=== PATIENT | female | born 1955 | race Caucasian/White ===

== ENCOUNTER 2017-01-20 21:13 | Inpatient (IN) | payer OTHER ==
[~2017-01-20] VITALS: Ht 172.7 cm; Wt 94.0 kg
[~2017-01-20 21:13] MED LIST: BACTDS PO; CLOT30CR24 TOP; DOCU-144 PO; FER325 PO; RIFA300C53 PO; TRAM50TA2 PO
[2017-01-21] VITALS (18 sets, daily range): BP systolic 116–150; BP diastolic 69–112; PULSE 65–89; RESP 10–20; TEMP 98.5; Ht 172.7 cm; Wt 94.0 kg
[2017-01-21 01:25] LABS: URINE BLOOD (Dip) POC Negative (NEGATIVE)
--- NOTE | 2017-01-21 01:55 | RADRPT ---
PROCEDURE: XR Chest. CLINICAL INDICATION: Chest pain. TECHNIQUE: AP Portable chest. COMPARISON: No pertinent prior examinations were submitted for comparison. FINDINGS: There is mild to moderate cardiomegaly. The lungs are clear. The osseous structures are unremarkab le. IMPRESSION: No acute findings. RPTAT: HIKT .Alhaji Tatum MD, MD Date Time Electronically viewed and signed by .Alhaji Tatum MD, MD on 01/21/2017 01:55 .T/
[2017-01-21 02:12] LABS: ADD SCAN DIFF NO
[2017-01-21 02:28] LABS: CHLORIDE 104 mmol/L (97-110)
[2017-01-21 02:29] LABS: POTASSIUM 4.5 mmol/L (3.5-5.1); SODIUM 138 mmol/L (135-144)
[2017-01-21 02:31] LABS: CREATININE 0.98 mg/dl (0.44-1.00); INR 0.98; PARTIAL THROMBOPLASTIN TIME 23.4 Sec (25.0-35.0)
[2017-01-21 02:32] LABS: ANION GAP 15 (8-16); BLOOD UREA NITROGEN 23 mg/dl (7-20); CALCIUM 9.1 mg/dl (8.4-10.2); CARBON DIOXIDE 24 mmol/L (21-31); GLUCOSE 107 mg/dl (70-220)
[2017-01-21 02:51] LABS: TROPONIN-I < 0.012 ng/ml (0.00-0.12)
[2017-01-21 02:57] LABS: ABNORMAL IP MESSAGE 1; HEMATOCRIT 19.3 % (37.0-47.0); MEAN CORPUSCULAR HEMOGLOBIN 14.7 pg (29.0-33.0); MEAN CORPUSCULAR HGB CONC 24.9 g/dl (32.0-37.0); MEAN PLATELET VOLUME 8.9 fl (7.4-10.4); PLATELET COUNT 594 10^3/UL (140-415); RED BLOOD COUNT 3.27 10^6/ul (4.20-5.40); RED CELL DISTRIBUTION WIDTH 20.5 % (11.5-14.5); WHITE BLOOD COUNT 11.5 10^3/ul (4.8-10.8)
[2017-01-21 03:02] LABS: HEMOGLOBIN 4.8 g/dl (12.0-16.0)
[2017-01-21 03:40] LABS: HEMATOCRIT 19.2 % (37.0-47.0)
--- NOTE | 2017-01-21 04:00 | ERA ---
ER Documentation Chief Complaint Date/Time DATE: 01/21/17 TIME: 03:59 Chief Complaint Anxiety HPI This is a 61 year female comes in for anxiety. She does say she has a history of anemia and some feeling very weak. Denies any fevers chills nausea vomiting suicidal homicidal ideation. Denies any other current complaints. ROS All systems reviewed and are negative except as per history of present illness. Medications Home Meds Active Scripts Tramadol HCl (Tramadol HCl) 50 Mg Tablet, 50 MG PO Q6H Y for SEVERE PAIN LEVEL 7 -10, #20 TAB Prov:HECTOR SUTTON CLAIMS VICE PRESIDENT 05/01/16 Docusate Sodium* (Colace*) 100 Mg Capsule, 100 MG PO BID, #60 CAP Prov:HECTOR SUTTON CLAIMS VICE PRESIDENT 05/01/16 Ferrous Sulfate* (Ferrous Sulfate*) 325 Mg Tabec, 325 MG PO BID, #60 TAB Prov:HECTOR SUTTON NP 05/01/16 Clotrimazole* (Clotrimazole* AF) 1% - 30 Gm Cream.gm., 1 APPLIC TOP BID for 7 Days, TUB Prov:HECTOR SUTTON NP 04/07/15 Rifampin* (Rifampin*) 300 Mg Cap, 300 MG PO BID, #6 CAP Prov:HECTOR SUTTON CLAIMS VICE PRESIDENT 04/07/15 Sulfamethoxazole-Trimethoprim* (Bactrim* DS) 800-160 Mg Tab, 1 TAB PO BID for 10 Days, TAB Prov:HECTOR SUTTON NP 04/07/15 Allergies Allergies: Coded Allergies: No Known Allergy (Unverified , 04/07/15) PMhx/Soc History of Surgery: Yes (arm surgery) Anesthesia Reaction: No Hx Neurological Disorder: No Hx Respiratory Disorders: No Hx Cardiac Disorders: No Hx Psychiatric Problems: Yes (Anxiety) Hx Miscellaneous Medical Probl: No Hx Alcohol Use: Yes (Former) Hx Tobacco Use: Yes Smoking Status: Never smoker Physical Exam Vitals Vital Signs Date Time Temp Pulse Resp B/P Pulse Ox O2 Delivery O2 Flow Rate FiO2 01/21/17 03:30 99.4 84 18 125/80 100 Room Air 01/20/17 21:17 100.0 95 20 122/60 100 Physical Exam Const: [] Head: Atraumatic Eyes: Normal Conjunctiva ENT: Normal External Ears, Nose and Mouth. Neck: Full range of motion..~ No meningismus. Resp: Clear to auscultation bilaterally Cardio: Regular rate and rhythm, no murmurs Abd: Soft, non tender, non distended. Normal bowel sounds Skin: No petechiae or rashes Back: No midline or flank tenderness Ext: No cyanosis, or edema Neur: Awake and alert Psych: Normal Mood and Affect Result Diagram: 01/21/17 02001/21/17 0203 Results 24 hrs Laboratory Tests Test 01/21/17 01:28 01/21/17 02:03 Bedside Urine pH (LAB) 5.5 Bedside Urine Protein (LAB) 1+ Bedside Urine Glucose (UA) Negative Bedside Urine Ketones (LAB) Negative Bedside Urine Blood Negative Bedside Urine Nitrite (LAB) Negative Bedside Urine Leukocyte Esterase (L Trace White Blood Count 11.510^3/ul Red Blood Count 3.2710^6/ul Hemoglobin 4.8g/dl Hematocrit 19.3% Mean Corpuscular Volume 59.0fl Mean Corpuscular Hemoglobin 14.7pg Mean Corpuscular Hemoglobin Concent 24.9g/dl Red Cell Distribution Width 20.5% Platelet Count 99132^3/UL Mean Platelet Volume 8.9fl Neutrophils % 74.1% Lymphocytes % 15.2% Monocytes % 9.8% Eosinophils % 0.3% Basophils % 0.1% Nucleated Red Blood Cells % 0.3/100WBC Neutrophils # 8.610^3/ul Lymphocytes # 1.810^3/ul Monocytes # 1.110^3/ul Eosinophils # 0.010^3/ul Basophils # 0.010^3/ul Nucleated Red Blood Cells # 0.010^3/ul Prothrombin Time 13.0Sec Prothrombin Time Ratio 1.0 INR International Normalized Ratio 0.98 Activated Partial Thromboplast Time 23.4Sec Sodium Level 138mmol/L Potassium Level 4.5mmol/L Chloride Level 104mmol/L Carbon Dioxide Level 24mmol/L Anion Gap 15 Blood Urea Nitrogen 23mg/dl Creatinine 0.98mg/dl Glucose Level 107mg/dl Calcium Level 9.1mg/dl Troponin I < 0.012ng/ml [facility] Patient found to have a hemoglobin of 4.8. She will be admitted to hospitalist. Typed and crossed for 2 units. EKG: Rate/Rhythm: [Normal Sinus Rhythm] QRS, ST, T-waves: [No changes consistent w/ acute ischemia] Impression: [No evidence of ischemia or arrhythmia] Chest X-ray 1V Interpreted by me: Soft Tissue: No acute abnormalities Bones: No acute abnormalities Mediastinum/Cardiac Silhouette/Lungs: [No acute abnormalities] Departure Diagnosis: Primary Impression: Anemia Qualified Code: D64.9 - Anemia, unspecified type Condition: Serious NICKI KRISHNA January 21, 2017 04:00
[2017-01-21 04:06] LABS: HEMOGLOBIN 4.7 g/dl (12.0-16.0)
[2017-01-21 05:42] LABS: PLATELET ESTIMATE PLT APPEAR INCREASED
[2017-01-21 05:43] LABS: TOTAL CELLS COUNTED % 100
[2017-01-21 05:50] LABS: ANISOCYTOSIS 2+
[2017-01-21 05:51] LABS: HYPOCHROMASIA 2+; MICROCYTOSIS 1+; POLYCHROMASIA 1+
[2017-01-21] MEDS ORDERED: DIPHENHYDRAMINE 50 MG INJ IV ONE (06:00)
[2017-01-21] MEDS ORDERED: NACL 0.9% 3 ML SYG IV SCH (07:30)
[2017-01-21] MEDS ORDERED: Pantoprazole 80 mg in NS 100 ml LD IV ONE (07:30)
[2017-01-21] MEDS ORDERED: morphine 2 MG INJ IV PRN (07:30)
[2017-01-21] MEDS ORDERED: PANTOPRAZOLE 40 MG INJ IV ONE (07:30)
[2017-01-21] MEDS ORDERED: ONDANSETRON 4 MG INJ IV PRN (07:30)
--- NOTE | 2017-01-21 08:07 | HP ---
DATE OF ADMISSION: 01/20/2017 TIME SEEN: 6 a.m. CHIEF COMPLAINT: Anxiety and generalized weakness. HISTORY OF PRESENT ILLNESS: The patient is a 61-year-old female with a history of anxiety and anemi a who presented to the emergency department with the above-stated chief complaint. She reported ramila ng under a lot of stress, especially lately, and also reported a chronic history of fatigue and weak ness which had been progressively getting worse. Denied any chest pain, shortness of breath, nausea , vomiting, bright red blood per rectum. When she presented to the ER, blood pressure was 122/60, heart rate 95, respiratory rate 20, tempera ture 100, oxygen saturation 100% on room air. Laboratory value was notable for a hemoglobin of 4.8 with MCV of 59 and a platelet count 594. WBC 11.5, BUN 23. Otherwise, the rest of BMP within swapnil l limits. Chest x-ray was done which shows no acute findings with mild to moderate cardiomegaly. Two units of PRBCs have been ordered for her. Note that the patient did come here to the ER in April of last y ear with fatigue and weakness, and at that time, hemoglobin was 10.6. REVIEW OF SYSTEMS: A 12-point review was performed, negative except as mentioned in the HPI. PAST MEDICAL HISTORY: As per HPI. PAST SURGICAL HISTORY: She had some type of surgery on her arm. SOCIAL HISTORY: Positive for tobacco. She is an ex-illicit drug user as well as used to drink alco hol in the past. ALLERGIES: NO KNOWN DRUG ALLERGIES. HOME MEDICATIONS: 1. Ferrous sulfate. 2. Colace. PHYSICAL EXAMINATION: VITAL SIGNS: Stable. GENERAL: No acute distress, answering questions appropriately. HEENT: No obvious head deformity. Pupils react to light. Extraocular movements intact. CARDIOVASCULAR: Regular rate and rhythm. No extra sounds. LUNGS: Clear. ABDOMEN: Soft, nontender, nondistended. Positive bowel sounds. EXTREMITIES: No edema. NEUROLOGIC: No focal deficits. LABORATORY DATA: Pertinent positives as mentioned in the HPI. IMAGING: Chest x-ray results as mentioned in the HPI. IMPRESSION: 1. Severe microcytic anemia, most likely from gastrointestinal bleeding. 2. Most likely gastrointestinal bleed with positive stool guaiac. 3. Generalized weakness secondary to anemia. 4. Anxiety. PLAN: The patient's severe anemia is likely secondary to gastrointestinal bleed given positive stoo l guaiac test in the ER. Plan is for a blood transfusion, GI consult, as well as checking for sever e of iron deficiency. Depending on how severe of an iron deficiency she may have, will give IV iron . She will be provided anti-anxiety medication as needed. Currently no reporting of suicidal or ho micidal ideation. Given a low grade temperature of 100, will check UA with micro. Further workup and management per clinical course. Dictated By: NICKI ART/RICARDO Conf#: [id number] DID#: [id number]
[2017-01-21] MEDS: DEXTROSE 5%-0.45% NACL 1,000 ML IV SCH ×3 (11:03→23:52)
[2017-01-21 12:08] LABS: HEMATOCRIT 23.1 % (37.0-47.0)
[2017-01-21 12:24] LABS: HEMOGLOBIN 6.2 g/dl (12.0-16.0)
--- NOTE | 2017-01-21 13:36 | CONS ---
Date/Time of Note Date/Time of Note DATE: 01/21/17 TIME: 13:25 Assessment/Plan Assessment/Plan Additional Assessment/Plan Assessment * Anemia Upper GI Bleed vs Lower GI bleed vs malignancy Plan * Monitor H and H q6 and transfuse 1 unit PRBC hgb<7.5,2 units PRBC hgb<7 * PPI * EGD and colonoscopy risks and benefit explained to patient and agreed with planned procedure Consultation Date/Type/Reason Admit Date/Time January 21, 2017 at 03:51 Date of Consultation: January 21, 2017 Type of Consultation: Gastroenterology Reason for Consultation * anemia Referring Provider: NICKI HOFFMANN MD Hx of Present Illness 61 year old female with past medical history of anxiety and anemia who came to our emergency room because of body weakness and anemia.She denies any chest pain ,abdominal pain,hematochezia,nor hematemesis.She claims to be taking iron supplement but no workup been done. Emergency room course hemoglobin 4.2.She received 2 units of PRBC .presently hemoglobin is 6.2.Patient denies any abdominal pain,hematemesis nor hematochezia.I have explained to the patient to do further workup in order to establish the cause of her anemia Eyes: no complaints ENT: no complaints Respiratory: no complaints Cardiovascular: no complaints Gastrointestinal: no complaints Genitourinary: no complaints Musculoskeletal: no complaints Skin: no complaints Neurologic: no complaints Endocrine: no complaints Lymphatic: no complaints Psychological: nl mood/affect, no complaints Immunologic: no complaints Past Medical History Medical History: no pertinent history Past Surgical History Past Surgical Hx: no surgical history Family History Significant Family History: no pertinent family hx Social History Alcohol Use: rarely Smoking Status: Former smoker Exam/Review of Systems Vital Signs Vitals Vital Signs Date Time Temp Pulse Resp B/P Pulse Ox O2 Delivery O2 Flow Rate FiO2 01/21/17 12:00 98.5 89 13 145/83 97 Room Air Exam Constitutional: alert, oriented, well developed Psych: nl mood/affect, no complaints Head: atraumatic, normocephalic Eyes: EOMI, PERRL, nl conjunctiva, nl lids, nl sclera ENMT: nl external ears & nose, nl lips & teeth, nl nasal mucosa & septum Neck: non-tender, supple Respiratory: clear to auscultation, normal air movement Cardiovascular: nl pulses, regular rate and rhythm Gastrointestinal: nl liver, spleen, non-tender, soft Musculoskeletal: nl extremities to inspection, nl gait and stance Extremities: normal pulses Neurological: nl mental status, nl speech, nl strength Skin: nl turgor, No rash or lesions Lymph: nl lymph nodes Results Result Diagram: 01/21/17 1138 01/21/17 0203 Results 24 hrs Laboratory Tests Test 01/21/17 01:28 01/21/17 02:03 01/21/17 03:25 01/21/17 11:38 Bedside Urine pH (LAB) 5.5 Bedside Urine Protein (LAB) 1+ H Bedside Urine Glucose (UA) Negative Bedside Urine Ketones (LAB) Negative Bedside Urine Blood Negative Bedside Urine Nitrite (LAB) Negative Bedside Urine Leukocyte Esterase (L Trace H White Blood Count 11.5 #H Red Blood Count 3.27 #L Hemoglobin 4.8 #*L 4.7 *L 6.2 #*L Hematocrit 19.3 #L 19.2 L 23.1 #L Mean Corpuscular Volume 59.0 L Mean Corpuscular Hemoglobin 14.7 #L Mean Corpuscular Hemoglobin Concent 24.9 #L Red Cell Distribution Width 20.5 #H Platelet Count 594 H Mean Platelet Volume 8.9 Neutrophils % 78.0 H Band Neutrophils % 2.0 Lymphocytes % 15.0 Monocytes % 4.0 Eosinophils % 1.0 Basophils % Nucleated Red Blood Cells % Neutrophils # 78.0 H Lymphocytes # 15.0 H Monocytes # 4.0 H Eosinophils # 1.0 H Basophils # Nucleated Red Blood Cells # Platelet Estimate PLT APPEAR INCREASED Large Platelets 1+ Polychromasia 1+ Hypochromasia 2+ Anisocytosis 2+ Microcytosis 1+ Prothrombin Time 13.0 Prothrombin Time Ratio 1.0 INR International Normalized Ratio 0.98 Activated Partial Thromboplast Time 23.4 L Sodium Level 138 Potassium Level 4.5 Chloride Level 104 Carbon Dioxide Level 24 Anion Gap 15 Blood Urea Nitrogen 23 H Creatinine 0.98 Glucose Level 107 Calcium Level 9.1 Troponin I < 0.012 Medications Medications Current Medications Dextrose/Sodium Chloride (D5-1/2ns) 1,000 ml @ 120 mls/hr Q8H20M IV Last administered on 01/21/17t 11:03; Admin Dose 120 MLS/HR; Start 01/21/17 at 07:12 Ondansetron HCl (Zofran Inj) 4 mg Q6H PRN IV NAUSEA AND/OR VOMITING; Start at 07:30 Morphine Sulfate (morphine) 2 mg Q4H PRN IV SEVERE PAIN LEVEL 7-10; Start 01/21 at 07:30 REMI MARQUEZ MD January 21, 2017 13:36
[2017-01-21] MEDS: BISACODYL (EC) 5 MG TAB PO ONE ×2 (16:08→16:09)
[2017-01-21] MEDS ORDERED: MAGNESIUM CITRATE 300 ML BTL PO ONE (17:30)
[2017-01-21] MEDS ORDERED: POLYETHYLENE GLYCOL 3350 119 GM POWDER PO ONE (18:30)
[2017-01-22] VITALS (20 sets, daily range): BP systolic 131–153; BP diastolic 70–88; PULSE 66–82; RESP 16–26
[2017-01-22 01:24] LABS: HEMATOCRIT 29.4 % (37.0-47.0); HEMOGLOBIN 8.5 g/dl (12.0-16.0)
[2017-01-22] MEDS: DEXTROSE 5%-0.45% NACL 1,000 ML IV SCH ×4 (04:36→17:45)
[2017-01-22] MEDS ORDERED: POLYETHYLENE GLYCOL 3350 119 GM POWDER PO ONE (06:00)
[2017-01-22 07:46] LABS: ADD SCAN DIFF NO
[2017-01-22 07:49] LABS: ABNORMAL IP MESSAGE 1; BASOPHILS % 0.4 % (0.0-2.0); EOSINOPHILS # 0.1 10^3/ul (0.0-0.5); EOSINOPHILS % 1.8 % (0.0-7.0); HEMATOCRIT 30.4 % (37.0-47.0); HEMOGLOBIN 8.7 g/dl (12.0-16.0); LYMPHOCYTES # 1.4 10^3/ul (0.8-2.9); LYMPHOCYTES % 18.8 % (15.0-51.0); MEAN CORPUSCULAR HEMOGLOBIN 19.5 pg (29.0-33.0); MEAN CORPUSCULAR HGB CONC 28.6 g/dl (32.0-37.0); MEAN CORPUSCULAR VOLUME 68.2 fl (82.0-101.0); MEAN PLATELET VOLUME 8.7 fl (7.4-10.4); MONOCYTE # 0.9 10^3/ul (0.3-0.9); MONOCYTES % 12.4 % (0.0-11.0); NEUTROPHIL # 4.7 10^3/ul (1.6-7.5); NUCLEATED RED BLOOD CELLS% 0.4 /100WBC (0.0-0.0); PLATELET COUNT 501 10^3/UL (140-415); RED BLOOD COUNT 4.46 10^6/ul (4.20-5.40); RED CELL DISTRIBUTION WIDTH 28.9 % (11.5-14.5); WHITE BLOOD COUNT 7.2 10^3/ul (4.8-10.8)
[2017-01-22] MEDS ORDERED: BISACODYL (EC) 5 MG TAB PO ONE (08:00)
[2017-01-22 08:02] LABS: ALBUMIN 3.3 g/dl (3.3-4.9)
[2017-01-22 08:03] LABS: POTASSIUM 4.1 mmol/L (3.5-5.1)
[2017-01-22 08:05] LABS: ALBUMIN/GLOBULIN RATIO 1.1; BILIRUBIN,INDIRECT 0.8 mg/dl (0-1.1); BILIRUBIN,TOTAL 0.8 mg/dl (0.2-1.3); CREATININE 0.84 mg/dl (0.44-1.00); TOTAL PROTEIN 6.3 g/dl (6.1-8.1)
[2017-01-22 08:06] LABS: MAGNESIUM 1.9 mg/dl (1.7-2.5); PHOSPHORUS 4.2 mg/dl (2.5-4.9)
[2017-01-22 08:31] LABS: IRON 18 ug/dl (35-150)
[2017-01-22 08:41] LABS: TOTAL IRON BINDING CAPACITY 570 ug/dl (241-421)
--- NOTE | 2017-01-22 10:18 | PN ---
Date/Time of Note Date/Time of Note LATE ENTRY DATE: 01/21/17 Assessment/Plan VTE Prophylaxis VTE Prophylaxis Intervention: SCD's Lines/Catheters IV Catheter Type (from Nrs): Peripheral IV Assessment/Plan Chief Complaint/Hosp Course Assessment and plan 1. Severe microcytic anemia. Suspect GI bleed. Of note patient did have positive guaiac stool per report. GI following. PRBC transfusion as needed 2. Generalized weakness secondary to #1. Improving status post PRBC transfusion. Monitor H&H 3. Anxiety. Will provide with benzodiazepine as needed Disposition plan: Continue blood transfusion. Monitor for improvement of H&H. Discussed plan of care with Dr. Dorado Problems: Subjective 24 Hr Interval Summary Free Text/Dictation No reported hematochezia or hematemesis or hemoptysis. Appears comfortable at present. Exam/Review of Systems Vital Signs Vitals Vital Signs Date Time Temp Pulse Resp B/P Pulse Ox O2 Delivery O2 Flow Rate FiO2 01/22/17 08:17 77 01/22/17 06:58 98.3 18 136/75 98 01/21/17 16:45 Room Air Intake and Output 01/21/17 01/21/17 01/22/17 15:00 23:00 07:00 Intake Total 960 ml 1245 ml 1770 ml Balance 960 ml 1245 ml 1770 ml Exam Constitutional: alert, oriented Psych: nl mood/affect Head: normocephalic Neck: supple, No jvd Respiratory: clear to auscultation, normal air movement Cardiovascular: regular rate and rhythm Gastrointestinal: soft, No non-tender Musculoskeletal: nl extremities to inspection Extremities: normal pulses Neurological: INSTITUTIONAL RESEARCH COORDINATOR II-XII intact, nl mental status, nl speech Results Result Diagram: 01/22/17 0715 01/22/17 0716 Results 24 hrs Laboratory Tests Test 01/21/17 11:38 01/22/17 01:00 01/22/17 07:15 01/22/17 07:16 Hemoglobin 6.2 #*L 8.5 #L 8.7 L Hematocrit 23.1 #L 29.4 #L 30.4 L White Blood Count 7.2 # Red Blood Count 4.46 # Mean Corpuscular Volume 68.2 L Mean Corpuscular Hemoglobin 19.5 #L Mean Corpuscular Hemoglobin Concent 28.6 L Red Cell Distribution Width 28.9 #H Platelet Count 501 H Mean Platelet Volume 8.7 Neutrophils % 66.0 Lymphocytes % 18.8 Monocytes % 12.4 H Eosinophils % 1.8 Basophils % 0.4 Nucleated Red Blood Cells % 0.4 H Neutrophils # 4.7 Lymphocytes # 1.4 Monocytes # 0.9 Eosinophils # 0.1 Basophils # 0.0 Nucleated Red Blood Cells # 0.0 Sodium Level 140 Potassium Level 4.1 Chloride Level 104 Carbon Dioxide Level 25 Anion Gap 15 Blood Urea Nitrogen 11 # Creatinine 0.84 Glucose Level 104 Calcium Level 9.0 Phosphorus Level 4.2 Magnesium Level 1.9 Iron Level 18 L Total Iron Binding Capacity 570 H Percent Iron Saturation 3 L Ferritin Pending Total Bilirubin 0.8 Direct Bilirubin 0.00 Indirect Bilirubin 0.8 Aspartate Amino Transf (AST/SGOT) 20 Alanine Aminotransferase (ALT/SGPT) 24 Alkaline Phosphatase 77 Total Protein 6.3 Albumin 3.3 Globulin 3.00 Albumin/Globulin Ratio 1.10 Medications Medications Current Medications Dextrose/Sodium Chloride (D5-1/2ns) 1,000 ml @ 120 mls/hr Q8H20M IV Last administered on 01/22/17 04:36; Admin Dose 120 MLS/HR; Start 01/21/17 at 07:12 Ondansetron HCl (Zofran Inj) 4 mg Q6H PRN IV NAUSEA AND/OR VOMITING; Start at 07:30 Morphine Sulfate (morphine) 2 mg Q4H PRN IV SEVERE PAIN LEVEL 7-10; Start 01/21 at 07:30 LEXY ALBERT January 22, 2017 10:18
[2017-01-22 10:39] LABS: FERRITIN 11.4 ng/ml (11.1-264.0)
--- NOTE | 2017-01-22 14:50 | PN ---
Date/Time of Note Date/Time of Note DATE: 01/22/17 TIME: 14:38 Assessment/Plan Lines/Catheters IV Catheter Type (from [facility], [place]): Peripheral IV Assessment/Plan Chief Complaint/Hosp Course Assessment and plan 1. Severe microcytic anemia. Suspect GI bleed. Of note patient did have positive guaiac stool per report but recent lab was negative. GI following. PRBC transfusion as needed 2. Generalized weakness secondary to #1. Improving status post PRBC transfusion. Monitor H&H 3. Anxiety. Will provide with benzodiazepine as needed 4. iron deficiency anemia. will start on IV iron Disposition plan: tentative plan for EGD/colonoscopy. will follow up Discussed plan of care with Dr. Dorado Problems: Subjective 24 Hr Interval Summary Free Text/Dictation no s/s distress. comfortable Exam/Review of Systems Vital Signs Vitals Vital Signs Date Time Temp Pulse Resp B/P Pulse Ox O2 Delivery O2 Flow Rate FiO2 01/22/17 12:19 82 01/22/17 11:25 98.4 18 131/70 97 01/21/17 16:45 Room Air Intake and Output 01/21/17 01/21/17 01/22/17 15:00 23:00 07:00 Intake Total 960 ml 1245 ml 1770 ml Balance 960 ml 1245 ml 1770 ml Exam Constitutional: alert, oriented Head: normocephalic Neck: supple, No jvd Respiratory: clear to auscultation, normal air movement Cardiovascular: regular rate and rhythm Gastrointestinal: non-tender, soft Musculoskeletal: nl extremities to inspection Neurological: SNOWMAKER II-XII intact, nl mental status, nl speech Skin: nl turgor Results Result Diagram: 01/22/17 0715 01/22/17 0716 Results 24 hrs Laboratory Tests Test 01/22/17 01:00 01/22/17 07:15 01/22/17 07:16 01/22/17 11:50 Hemoglobin 8.5 #L 8.7 L Hematocrit 29.4 #L 30.4 L White Blood Count 7.2 # Red Blood Count 4.46 # Mean Corpuscular Volume 68.2 L Mean Corpuscular Hemoglobin 19.5 #L Mean Corpuscular Hemoglobin Concent 28.6 L Red Cell Distribution Width 28.9 #H Platelet Count 501 H Mean Platelet Volume 8.7 Neutrophils % 66.0 Lymphocytes % 18.8 Monocytes % 12.4 H Eosinophils % 1.8 Basophils % 0.4 Nucleated Red Blood Cells % 0.4 H Neutrophils # 4.7 Lymphocytes # 1.4 Monocytes # 0.9 Eosinophils # 0.1 Basophils # 0.0 Nucleated Red Blood Cells # 0.0 Sodium Level 140 Potassium Level 4.1 Chloride Level 104 Carbon Dioxide Level 25 Anion Gap 15 Blood Urea Nitrogen 11 # Creatinine 0.84 Glucose Level 104 Calcium Level 9.0 Phosphorus Level 4.2 Magnesium Level 1.9 Iron Level 18 L Total Iron Binding Capacity 570 H Percent Iron Saturation 3 L Ferritin 11.4 Total Bilirubin 0.8 Direct Bilirubin 0.00 Indirect Bilirubin 0.8 Aspartate Amino Transf (AST/SGOT) 20 Alanine Aminotransferase (ALT/SGPT) 24 Alkaline Phosphatase 77 Total Protein 6.3 Albumin 3.3 Globulin 3.00 Albumin/Globulin Ratio 1.10 Stool Occult Blood NEGATIVE Medications Medications Current Medications Dextrose/Sodium Chloride (D5-1/2ns) 1,000 ml @ 120 mls/hr Q8H20M IV Last administered on 01/22/17 04:36; Admin Dose 120 MLS/HR; Start 01/21/17 at 07:12 Ondansetron HCl (Zofran Inj) 4 mg Q6H PRN IV NAUSEA AND/OR VOMITING; Start at 07:30 Morphine Sulfate (morphine) 2 mg Q4H PRN IV SEVERE PAIN LEVEL 7-10; Start 01/21 at 07:30 LEXY ALBERT January 22, 2017 14:48
[2017-01-22] MEDS ORDERED: SOD FERRIC GLUC COMPLX 125 MG in SOD CHLORIDE 0.9% 100 ML IVPB SCH (17:00)
[2017-01-22] MEDS: PANTOPRAZOLE (EC) 40 MG TAB PO SCH (17:40)
[2017-01-22] MEDS: METOCLOPRAMIDE 10 MG TAB PO SCH ×2 (17:40→23:47)
[2017-01-23] VITALS (7 sets, daily range): BP systolic 124–144; BP diastolic 67–83; PULSE 68–79; RESP 18
[2017-01-23] MEDS: DEXTROSE 5%-0.45% NACL 1,000 ML IV SCH ×3 (00:52→13:11)
--- NOTE | 2017-01-23 05:01 | GILP ---
DATE OF PROCEDURE: PROCEDURE: Esophagogastroduodenoscopy with biopsies. BRIEF HISTORY AND INDICATIONS: The patient with unexplained severe microcytic hypochromic iron defi ciency anemia. PREMEDICATION: Monitored anesthesia care by anesthesiologist. SURGEON: Remi Fletcher MD. INSTRUMENT USED: Olympus panendoscope. TECHNIQUE: After informed consent, with the patient/relatives understanding the procedure, its indic ations, potential risks and complications, including but not limited to: allergic reaction, bleeding , perforation or infection, and after all pertinent questions were answered to the patient's satisfa ction, the patient/relatives signed witnessed informed consent. Following this, premedication was administered slowly IV push under careful cardiovascular and respi ratory monitoring with pulse oximetry, automatic blood pressure and electronic device monitor. Once the sedative effect was achieved the patient was place in the left lateral decubitus, the panen doscope was introduced and advanced under visual control. FINDINGS: Careful examination of the upper gastrointestinal tract, both on insertion as well as wit hdrawal of the instrument disclosed the following findings: ESOPHAGUS:. There is most severe ulcerated esophagitis in the distal third of the esophagus which i s extensive and friable to the touch. Biopsies were obtained. Some small hiatal hernia is present. STOMACH: Upon entrance to the stomach, air was insufflated, the gastric cooper distended normally. There is mild erythema and edema of the mucosa. Biopsies were obtained to rule out H. pylori infect ion. PYLORUS: The pylorus appears patent and within normal limits, with no evidence of gastric outlet ob struction. DUODENUM: The duodenal mucosa was carefully examined in the duodenal bulb as well as the second por tion of the duodenum and appears unremarkable with no evidence of duodenitis, ulcer or neoplasm. The instrument was then withdrawn, the patient tolerated the procedure well and was transfer out of the endoscopy suite awake, and in good condition to continue recovery under observation IMPRESSION: 1. Most severe ulcerated distal third of the esophagus. Biopsies obtained. 2. Small hiatal hernia. 3. Moderate gastritis, rule out Helicobacter pylori infection, biopsies obtained. PLAN: The patient will be treated with PPI b.i.d. and Reglan 10 mg q.i.d. will be added as well. P athology will be reviewed and further recommendation will depend on patient's clinical course. Reev aluation in 8 weeks is advisable to assess healing endoscopically. Dictated By: REMI FLETCHER MS/RICARDO Conf#: [id number] DID#: [id number] CC: REMI FLETCHER;*EndCC*
--- NOTE | 2017-01-23 05:06 | GILP ---
DATE OF PROCEDURE: 01/22/2017 PROCEDURE: Colonoscopy with polyp ablation. PREMEDICATION: Monitored anesthesia care by anesthesiologist. SURGEON: Remi Fletcher MD NSTRUMENT USED: Olympus colonoscope. PREPARATION: Adequate. TECHNIQUE: After informed consent, with the patient/relatives understanding the procedure, its indic ations potential risks and complications, including but not limited to: allergic reaction, bleeding, perforation, infection, missed lesions and after all pertinent questions were answered to the patie nt's satisfaction, the patient/relatives signed the witnessed informed consent. Following this, premedication was administered slowly IV push by under careful cardiovascular and re spiratory monitoring with pulse oximetry, automatic blood pressure and paralegal specialist. Once the sedativ e effect was achieved, the patient was placed in the left lateral decubitus position, digital rectal examination was performed. The colonoscope was then introduced and advanced under visual control th roughout all segments of the colon including: the rectum, sigmoid, descending colon, splenic flexure , transverse colon, hepatic flexure, ascending colon and finally reaching the cecum which was clearl y identified by transillumination, finger indentation and the ileocecal valve. FINDINGS: Careful examination of the mucosa of the lower gastrointestinal tract both on insertion a s well as withdrawal of the instrument disclosed the following findings: Rectal Examination: No evidence of perirectal disease, no masses. Colonic Mucosa: There is a 6 mm sessile polyp in the distal sigmoid colon which was completely abla nola with biopsy forceps. Otherwise, the colonic mucosa is unremarkable throughout. The ileocecal v alve was clearly identified and appears unremarkable. The instrument was withdrawn reexamining the mucosa in detail. No additional abnormalities are noted with exception of moderate sized internal h emorrhoids. The instrument was then withdrawn, the patient tolerated the procedure well and was transferred out of the Endoscopy Suite awake and in good condition to continue recovery under observation. IMPRESSION: 1. A 6 mm sessile polyp, distal sigmoid colon, ablated. 2. Moderate size internal hemorrhoids. 3. Otherwise, normal colonoscopy to cecum. PLAN: The patient's diet will be advanced as tolerated, and pathology will be reviewed as soon as a vailable. Further recommendation will depend on the patient's clinical course. Dictated By: REMI FLETCHER MS/RICARDO Conf#: [id number] DID#: [id number] CC: REMI FLETCHER;*End*
[2017-01-23] MEDS: PANTOPRAZOLE (EC) 40 MG TAB PO SCH (05:11)
[2017-01-23] MEDS: METOCLOPRAMIDE 10 MG TAB PO SCH ×2 (05:11→13:12)
[2017-01-23 07:20] LABS: ADD SCAN DIFF NO
[2017-01-23 07:38] LABS: ABNORMAL IP MESSAGE 1; BASOPHILS % 0.2 % (0.0-2.0); EOSINOPHILS # 0.1 10^3/ul (0.0-0.5); EOSINOPHILS % 1.2 % (0.0-7.0); HEMOGLOBIN 8.4 g/dl (12.0-16.0); LYMPHOCYTES # 1.3 10^3/ul (0.8-2.9); LYMPHOCYTES % 16.2 % (15.0-51.0); MEAN CORPUSCULAR HEMOGLOBIN 19.6 pg (29.0-33.0); MEAN CORPUSCULAR VOLUME 69.9 fl (82.0-101.0); MEAN PLATELET VOLUME 8.8 fl (7.4-10.4); MONOCYTES % 12.5 % (0.0-11.0); NEUTROPHIL # 5.7 10^3/ul (1.6-7.5); NEUTROPHILS % 69.5 % (39.0-77.0); NUCLEATED RED BLOOD CELLS% 0.2 /100WBC (0.0-0.0); PLATELET COUNT 473 10^3/UL (140-415); RED BLOOD COUNT 4.29 10^6/ul (4.20-5.40); RED CELL DISTRIBUTION WIDTH 29.9 % (11.5-14.5); WHITE BLOOD COUNT 8.3 10^3/ul (4.8-10.8)
[2017-01-23 08:06] LABS: CALCIUM 8.8 mg/dl (8.4-10.2); CREATININE 0.94 mg/dl (0.44-1.00); POTASSIUM 4.2 mmol/L (3.5-5.1)
[2017-01-23] MEDS ORDERED: FER325 PO (10:30)
[2017-01-23] MEDS ORDERED: DOCU-144 PO (10:30)
[2017-01-23] MEDS ORDERED: METO10TA96 PO (10:30)
[2017-01-23] MEDS ORDERED: PANT40TA4 PO (10:30)
--- NOTE | 2017-01-23 10:31 | PDOCDIS ---
Discharge Instructions DIAGNOSIS Discharge Diagnosis: 1. iron deficiency anemia 2. gastritis CONDITION Patient Condition: Stable HOME CARE INSTRUCTIONS: Special Diet: Regular Diet FOLLOW UP/APPOINTMENTS Appointments 1. Follow up with Dr. Eduard Fletcher in one week LEXY ALBERT January 23, 2017 10:31
[2017-01-23] MEDS ORDERED: PANT40TA3 PO (11:44)
--- NOTE | 2017-01-23 15:59 | DS ---
Date/Time of Note Date/Time of Note DATE: 01/23/17 TIME: 15:57 Discharge Summary Admission/Discharge Info Admit Date/Time January 21, 2017 at 03:51 Discharge Date/Time Final Diagnosis 1. Severe microcytic anemia. 2. Generalized weakness secondary to #1. 3. Anxiety. 4. iron deficiency anemia. 5. Gastritis with ulcerated distal third of the esophagus Patient Condition: Stable Consults 1. Dr. Eduard Fletcher Hospital Course This is a 61-year-old female with history of anemia came to [facility] due to reports of generalized weakness. Note patient did respond report that she had been undergoing a lot of stress due to home issue. She did come to [facility] and was found to have hemoglobin of 4.8 MCV of 59 and platelet count of 594. She did receive 2 units of blood transfusion and did have good response. After conducting iron panel she was noted to be severely with iron anemia. She did state that she previously was on iron but had stopped taking the medication. She was instructed about the importance of adhering to medication. During the course of stay she did improve. She did report that her weakness had resolved once she received blood transfusion. She was continued on iron IV initially and then provided with oral iron supplements prescription as outpatient. She did undergo EGD as well that did show her to have severe ulcerated distal third of the esophagus and moderate gastritis. She was optimized with PPI medication and Reglan per GI consult recommendations. During her stay she did improve. The plan of care was discussed with the patient and patient did verbalize her understanding. On the day of discharge patient was in stable condition Discussed plan of care with Dr. Dorado Discharge process 40 minutes Home Meds Active Scripts Pantoprazole* (Protonix*) 40 Mg Tablet., 40 MG PO BID for 60 Days, TAB Prov:LEXY ALBERT 01/23/17 Metoclopramide Hcl* (Metoclopramide Hcl*) 10 Mg Tablet, 10 MG PO Q6 for 30 Days , TAB Prov:REGIDORLEXY 01/23/17 Ferrous Sulfate* (Ferrous Sulfate*) 325 Mg Tabec, 325 MG PO TID for 90 Days, TAB Prov:REGIDORLEXY 01/23/17 Docusate Sodium* (Colace*) 100 Mg Capsule, 100 MG PO BID, #60 CAP Prov:LEXY ALBERT 01/23/17 Tramadol HCl (Tramadol HCl) 50 Mg Tablet, 50 MG PO Q6H Y for SEVERE PAIN LEVEL 7 -10, #20 TAB Prov:HECTOR SUTTON NP 05/01/16 Clotrimazole* (Clotrimazole* AF) 1% - 30 Gm Cream.gm., 1 APPLIC TOP BID for 7 Days, TUB Prov:HECTOR SUTTON NP 04/07/15 Discontinued Scripts Ferrous Sulfate* (Ferrous Sulfate*) 325 Mg Tabec, 325 MG PO BID, #60 TAB Prov:HECTOR SUTTON NP 05/01/16 Rifampin* (Rifampin*) 300 Mg Cap, 300 MG PO BID, #6 CAP Prov:HECTOR SUTTON NP 04/07/15 Sulfamethoxazole-Trimethoprim* (Bactrim* DS) 800-160 Mg Tab, 1 TAB PO BID for 10 Days, TAB Prov:HECTOR SUTTON NP 04/07/15 Follow-up Plan CONDITION Patient Condition: Stable HOME CARE INSTRUCTIONS: Special Diet: Regular Diet FOLLOW UP/APPOINTMENTS Appointments 1. Follow up with Dr. Eduard Fletcher in one week Primary Care Provider Care Physician No Primary Pending Labs Laboratory Tests Test 01/23/17 06:30 White Blood Count 8.310^3/ul (4.8-10.8) Red Blood Count 4.2910^6/ul (4.20-5.40) Hemoglobin 8.4g/dl (12.0-16.0) Hematocrit 30.0% (37.0-47.0) Mean Corpuscular Volume 69.9fl (82.0-101.0) Mean Corpuscular Hemoglobin 19.6pg (29.0-33.0) Mean Corpuscular Hemoglobin Concent 28.0g/dl (32.0-37.0) Red Cell Distribution Width 29.9% (11.5-14.5) Platelet Count 37397^3/UL (140-415) Mean Platelet Volume 8.8fl (7.4-10.4) Neutrophils % 69.5% (39.0-77.0) Lymphocytes % 16.2% (15.0-51.0) Monocytes % 12.5% (0.0-11.0) Eosinophils % 1.2% (0.0-7.0) Basophils % 0.2% (0.0-2.0) Nucleated Red Blood Cells % 0.2/100WBC (0.0-0.0) Neutrophils # 5.710^3/ul (1.6-7.5) Lymphocytes # 1.310^3/ul (0.8-2.9) Monocytes # 1.010^3/ul (0.3-0.9) Eosinophils # 0.110^3/ul (0.0-0.5) Basophils # 0.010^3/ul (0.0-0.1) Nucleated Red Blood Cells # 0.010^3/ul (0.0-0.0) Sodium Level 138mmol/L (135-144) Potassium Level 4.2mmol/L (3.5-5.1) Chloride Level 108mmol/L (97-110) Carbon Dioxide Level 26mmol/L (21-31) Anion Gap 8 (8-16) Blood Urea Nitrogen 10mg/dl (7-20) Creatinine 0.94mg/dl (0.44-1.00) Glucose Level 97mg/dl (70-220) Calcium Level 8.8mg/dl (8.4-10.2) LEXY ALBERT January 23, 2017 15:59
== END 2017-01-23 15:50 | disposition home or self-care (01) | DRG 378 ==
LOC: FTE 21:13 → ICU 01-21 03:51 → TEL 01-21 19:37
PROVIDERS: ADMIT Internal Medicine; ATTEND Internal Medicine
PROC: 30233N1 Transfusion of Nonautologous Red Blood Cells into Peripheral Vein, Percutaneous Approach (ICD-10-PCS; 2017-01-21)
PROC: 0DBN8ZZ Excision of Sigmoid Colon, Via Natural or Artificial Opening Endoscopic (ICD-10-PCS; 2017-01-22)
PROC: 0DB38ZX Excision of Lower Esophagus, Via Natural or Artificial Opening Endoscopic, Diagnostic (ICD-10-PCS; principal; 2017-01-22 17:30)
PROC: 0DB68ZX Excision of Stomach, Via Natural or Artificial Opening Endoscopic, Diagnostic (ICD-10-PCS; 2017-01-22 17:30)
DX: K92.2 Gastrointestinal hemorrhage, unspecified (principal); D62 Acute posthemorrhagic anemia; K22.10 Ulcer of esophagus without bleeding; K29.70 Gastritis, unspecified, without bleeding; K44.9 Diaphragmatic hernia without obstruction or gangrene; K64.8 Other hemorrhoids; B35.3 Tinea pedis; D50.9 Iron deficiency anemia, unspecified; D12.5 Benign neoplasm of sigmoid colon; F41.9 Anxiety disorder, unspecified; R53.1 Weakness; Z87.891 Personal history of nicotine dependence
CPT/HCPCS: 36430; 71010; 80048; 80053; 81003; 82270; 82728; 83540; 83735; 84100; 84484; 85014; 85018; 85025; 85610; 85730; 86850; 86900; 86901; 86920; 87081; 88305; 88312; 88313; 93005; 96374; C9113; J1200; J2916; J7042; P9016